=== PATIENT | male | born 1945 | race Caucasian/White ===

== ENCOUNTER 2020-06-28 02:57 | Outpatient (CLI) | payer MEDICARE, OTHER, SELFPAY ==
[2020-06-28 11:28] LABS: ALT 27 U/L (16-63); AST 25 U/L (15-37); Albumin 3.6 g/dL (3.4-5.0); Alkaline Phosphatase 52 U/L (46-116); Bilirubin, Direct 0.11 mg/dL (0.00-0.20); Bilirubin, Total 0.5 mg/dL (0.2-1.0); Total Protein 6.8 g/dL (6.4-8.2)
== END 2020-06-28 03:17 ==
PROVIDERS: Visit Provider Radiology Radiation Oncology
DX: C61 Malignant neoplasm of prostate (principal)
CPT/HCPCS: 36415; 80076

== ENCOUNTER 2022-11-18 06:53 | Day surgery (SDC) | payer MEDICARE, SELFPAY ==
[2022-11-18 07:47] VITALS: BP 146/80; PULSE 63; RESP 18; TEMP 36.7; O2SAT 97
--- NOTE | 2022-11-18 07:57 | ANES.PREOP_ITS ---
General Info Date of Service Date Performed: 11/18/22 Height: 6 ft Weight: 87.1 kg Body Mass Index (BMI): 26.0 Surgical Procedure: Operation Date: 11/18/22 09:40 Proposed Procedure Side Surgeon p Cataract Extraction with IOL Implant Left Hitesh Mendiola MD Meds Allergies and Home Medications Allergies Allergy/AdvReac Type Severity Reaction Status Date / Time No Known Allergies Allergy Unverified 11/18/22 07:38 Home Medication Medication Instructions Recorded cholecalciferol (vitamin D3) 50 50 mcg PO DAILY 11/14/22 mcg (2,000 unit) capsule (Vitamin D3) elderberry fruit 200 mg capsule 200 mg PO DAILY 11/14/22 lorazepam 0.5 mg tablet 0.5 mg PO DAILY PRN 11/14/22 multivitamin 1 tab PO DAILY 11/14/22 omeprazole 40 mg capsule,delayed 40 mg PO BID 11/14/22 release ropinirole 0.5 mg tablet 0.5 mg PO DAILY 11/14/22 aspirin 81 mg chewable tablet 1 tab PO DAILY 11/18/22 Current Visit Medications: Current Medications Generic Name Dose Route Start Last Admin Trade Name Freq PRN Reason Stop Dose Admin Acetaminophen 1,000 mg 11/18/22 06:22 Acetaminophen 500 Mg Tab PO Q4H PRN PRN Miscellaneous Medication 0 ml 11/18/22 06:22 Prednisolone 1%, Moxifloxacin 0.5%, Nepafenac 0.1% 5ml Btl OS DIRECTED [facility] Miscellaneous Medication 0 ml 11/18/22 06:22 Tropicam./Phenyleph. (1/2.5%) 5 Ml Btl OS DIRECTED [facility] Tetracaine HCl 0 ml 11/18/22 06:22 Tetracaine 0.5% 4 Ml Btl OS DIRECTED [facility] PFSH Active Problems Active Problems: Problem Status Onset Code Nuclear age-related cataract, left eye H25.12 Medical History Medical History Adenomatous polyp of colon Allergic rhinitis Squires esophagus Cataract Depressive disorder Diverticular disease of colon GERD (gastroesophageal reflux disease) Hx of urinary stone Ingrown toenail Insomnia Malignant tumor of prostate Primary cutaneous T-cell lymphoma Raised prostate specific antigen Surgical History Surgical History Hx of colonoscopy Hx of endoscopy Hx of nasal septoplasty Hx of tonsillectomy Tobacco Smoking/Tobacco Use Status: Never Alcohol Alcohol Intake: never Substance Use Substance use: Never Substance use type: does not use Vital Signs and Lab Results Vital Signs Most Recent Vital Signs in EMR: Most Recent Vital Signs Temp Pulse Resp BP Pulse Ox 36.7 C 63 18 146/80 H 97 11/18/22 07:47 11/18/22 07:47 11/18/22 07:47 11/18/22 07:47 11/18/22 07:47 Lab Results Blood Type / Crossmatch: No Data to Display Complete Blood Count: No Data to Display Complete Metabolic Panel: No Data to Display Liver Function Panel: No Data to Display Coagulation Panel: No Data to Display Cardiac Panel: No Data to Display Arterial Blood Gas: No Data to Display Venous Blood Gas: No Data to Display Pancreas Panel: No Data to Display Thyroid Panel: No Data to Display Infectious Disease: No Data to Display Blood Cultures: No Data to Display Toxicology Panel: No Data to Display Anesthesia Assessment and Plan Anesthesia History Personal History: No History of Anesthesia Complications Family History: No Family History of Anesthesia Complications Exercise Tolerance Exercise Tolerance: Metabolic Equivalents>4 Pertinent Negatives Pertinent Negatives: No Symptoms of GERD, No Major Cardiovascular Symptoms or Complaints, No Major Pulmonary Symptoms or Complaints and No History of CVA/TIA Cardiac & Pulmonary Exam Cardiac Exam: Normal S1/S2 Heart Sounds Pulmonary Exam: Clear Bilateral Breath Sounds Implantable Cardiac Device Does patient have a Pacemaker or an ICD?: No Airway Exam Known Difficult Airway: No Mallampati Class: 2 Mouth Opening: Normal (> 3cm) Thyromental Distance: Greater than 3 cm Neck Range of Motion: Full ROM Neck Circumference: Normal Teeth Condition: Normal Dentition ASA Classification ASA Score: ASA 2 Emergency Case?: No NPO Status NPO Status: NPO Clears >2 hours, Solids >8 hours Anesthesia Plan Resuscitation Status: Full Code Anesthesia Technique: MAC Anesthesia Airway Planned: Natural Airway Monitors Used: Standard Monitors
[2022-11-18 08:00] VITALS: BMI 26.0
[2022-11-18] MEDS: Tropicam./Phenyleph. (1/2.5%) 5 ML BTL OS ×3 (08:14→08:24)
[2022-11-18] MEDS: Tetracaine 0.5% 4 ML BTL OS (09:16)
[2022-11-18] MEDS: Balanced Salt Soln.-PLUS 500 ML BAG (09:23)
[2022-11-18] MEDS: Lidocaine 1% Pres-Free 5 ML VIAL (09:24)
[2022-11-18] MEDS: Duovisc Viscoelastic System EACH 1 EACH (09:24)
[2022-11-18] MEDS: Phenylephrine/Lidocaine (15/10) MG/ML 1 ML VIAL (09:25)
[2022-11-18] MEDS: Povidone-Iodine Ophth 30 ML BTL (09:26)
[2022-11-18 09:42] VITALS: BP 160/99; PULSE 62; RESP 16; TEMP 36.4; O2SAT 98
--- NOTE | 2022-11-18 09:44 | W.PM.DSUDISC ---
Date of service: 11/18/22 Time of Service: 09:44 Discharge Plan Disposition Patient Disposition: Home Discharge Details Attending Provider: Hitesh Mendiola Primary Care Provider: Rebel Gold [place] [facility] and New Rx's Prescriptions: No Action multivitamin Tablet 1 tab PO DAILY omeprazole 40 mg Capsule,Delayed Release(Dr/Ec) 40 mg PO BID lorazepam 0.5 mg Tablet 0.5 mg PO DAILY PRN ropinirole 0.5 mg Tablet 0.5 mg PO DAILY Elderberry 200 mg Capsule 200 mg PO DAILY cholecalciferol (vitamin D3) [Vitamin D3] 50 mcg (2,000 unit) Capsule 50 mcg PO DAILY aspirin 81 mg Tablet,Chewable 1 tab PO DAILY Discharge Instructions Stand Alone Forms: Post-op Topical Cataract, Efe Mujica (DSU) Discharge Orders Discharge Orders: Discharge Order (Routine); Ordered 11/18/22 Ordered By: Hitesh Mendiola DS: Diagnosis Discharge Diagnosis (1) Nuclear age-related cataract, left eye: Status: Resolved
--- NOTE | 2022-11-18 09:45 | W.PM.OP ---
Date of service: 11/18/22 Time of Service: 09:45 Operative Note Operative Note DATE OF PROCEDURE: 11/18/22 PRE-OP DIAGNOSIS: Nuclear cataract, left eye POST-OP DIAGNOSIS: same PROCEDURE: Cataract extraction using phacoemulsification with intraocular lens implant, left eye SURGEON: Hitesh Mendiola ANESTHESIA TYPE: Local By Surgeon and MAC Refer to Anesthesia Record PATHOLOGY: none sent COMPLICATIONS: None Patient was transported to: same day Patient's condition: stable Implants: Renny and Renny Tecnis Eyhance [id number] Indications: Progressive decreased vision due to cataract, left eye Procedure Description: CATARACT SURGERY OPERATIVE REPORT PREOPERATIVE DIAGNOSIS: 1. Nuclear cataract, left eye POSTOPERATIVE DIAGNOSIS: Same OPERATION: 1. Cataract extraction using phacoemulsification with posterior chamber intraocular lens implant, left eye. IOL: IOL Answering Service Telephone Operator/Model: Renny & Renny Tecnis Eyhance DIB00 IOL Power: + 20.0 diopters IOL Serial Number: [id number] Optic Diameter: 6.0 mm Haptic/Overall Diameter: 13.0 mm PHACO INFO: CristopherWHOOPon Vision System with OZil and Active Fluidics Cumulative Dispersed Energy (CDE): 17.03 seconds SURGEON: Hitesh Mendiola MD, KAEL ANESTHESIA: Monitored [facility] (MAC), with local sub-tenon's anesthetic infiltration COMPLICATIONS: None SPECIMENS: None INDICATIONS FOR PROCEDURE: The patient is a 77-year-old gentleman with history of diminished visual acuity in his left eye secondary to the development of significant nuclear cataract. He is significantly symptomatic that he desires cataract surgery and attempt to improve and maximize his vision. The option of cataract surgery was offered to the patient and he wished to proceed. PROCEDURE: The correct surgical eye was identified and marked as the left eye and the pupil was dilated in the preoperative area using mydriatics and cycloplegics. The dilated pupil size was 7.0 mm. The patient elected to proceed without oral sedation. The patient was brought to the operating room where cardiopulmonary monitoring was instituted and surgical time-out was performed, confirming the correct operative eye and IOL power. Topical anesthesia was administered and ophthalmic povidone-iodine 5% was instilled into the conjunctival fornices. Lidocaine gel was applied to the cornea and the dian-ocular area was prepped with Betadine 10% solution and draped in the usual sterile fashion for intraocular surgery, including an aperture drape. A Tegaderm transparent film dressing was cut in half and used to cover the lashes and lid margins. Care was taken to sequester the lashes and lid margins under the Tegaderm dressing. A lid speculum was placed between the lids of the operative eye and the Cristopher LuxOR Revalia operating microscope was maneuvered into position. Pamella scissors were then used to make a conjunctival buttonhole approximately 6mm posterior to the limbus in the inferonasal quadrant. Blunt dissection was carried out to expose bare sclera, and a blunt-tipped sub-tenon?s anesthesia cannula was introduced and passed posteriorly along the globe where non-preserved plain lidocaine was injected into posterior sub-Tenon?s space. A sideport knife was used to make a paracentesis port superiorly/superiortemporally. Intraocular phenylephrine/lidocaine was injected int the anterior chamber.. The anterior chamber was filled with viscoelastic. A keratome knife was used to construct a 2-plane near-clear corneal tunnel extending 2.0mm into clear cornea temporally. A flap was raised on the anterior capsule and capsulorhexis forceps were used to complete a continuous curvilinear capsulorhexis of 5.0 mm. Balanced salt solution was then used to perform cortical cleaving hydrodissection and nuclear hydrodelineation until the lens could be freely rotated within the capsular bag. The lens nucleus was then disassembled and removed within the capsular bag and iris plane using phacoemulsification. Residual cortical material was removed using the 45-degree angled silicone I/A tip with 0.3mm port. The posterior capsule was carefully polished to remove as much residual lens epithelial cells as safely possible. The capsular bag was then inflated and the anterior chamber deepened with viscoelastic. The lens implant described above was inserted into the capsular bag using the Renny and Renny Simplicity pre-loaded injector. . A Kuglen hook was used to dial the IOL into position. Residual viscoelastic was then removed first from posterior to the IOL, then from the anterior chamber using the I/A handpiece. The lens implant was noted to center nicely within the capsular bag. The incisions were stromally hydrated, and the anterior chamber was reformed using BSS. Then 0.5cc of moxifloxacin 1.0mg/ml were injected into the capsular bag and anterior chamber. The incisions were checked with a Weck spear and found to be secure. Several drops of ophthalmic povidone-iodine 5% were then applied to the eye followed by two drops of Imprimis combination prednisolone/moxifloxacin/nepafenac solution. The drapes were removed and a clear plastic protective eye shield was placed over the eye. The patient was then returned to Same Day Surgery in stable condition.
--- NOTE | 2022-11-18 10:05 | W.ANESPOSTOP ---
Postoperative Evaluation Date, Time and Location Date Performed: 11/18/22 Time Performed: 09:42 Patient Location: Day Surgery Unit Vital Signs Most Recent Imported Vital Signs: Most Recent Vital Signs Temp Pulse Resp BP Pulse Ox 36.4 C L 62 16 160/99 H 98 11/18/22 09:42 11/18/22 09:42 11/18/22 09:42 11/18/22 09:42 11/18/22 09:42 Pain Score Most Recent Pain Score: Most Recent Pain Score Pain Level 0 11/18/22 09:42 Assessment Mental Status: Awake (Alert & Oriented to Patient Baseline) Airway and Respiratory Function: Patent airway with normal (patient baseline) respiratory exam Cardiovascular Function: Hemodynamically Stable Hydration Status: Adequately Hydrated Nausea & Vomiting: No Nausea or Vomiting Pain: Pt. Denies Any Pain Peripheral Nerve Block: Other (Local by Dr. Mendiola)
== END 2022-11-18 10:15 | disposition home or self-care (01) ==
LOC: SUR 06:53
PROVIDERS: PCP Neuromusculoskeletal Medicine & OMM; Visit Provider Ophthalmology
PROC: (CPT 66984; principal; 2022-11-18 09:30)
DX: H25.12 Age-related nuclear cataract, left eye (principal); K21.9 Gastro-esophageal reflux disease without esophagitis
CPT/HCPCS: 66984; V2632

== ENCOUNTER 2022-11-25 08:34 | Day surgery (SDC) | payer MEDICARE, SELFPAY ==
--- NOTE | 2022-11-25 06:48 | ANES.PREOP_ITS ---
General Info Date of Service Date Performed: 11/25/22 Height: 6 ft Weight: 87.1 kg Body Mass Index (BMI): 26.0 Surgical Procedure: Operation Date: 11/25/22 11:40 Proposed Procedure Side Surgeon p Cataract Extraction with IOL Implant Right Hitesh Mendiola MD Meds Allergies and Home Medications Allergies Allergy/AdvReac Type Severity Reaction Status Date / Time No Known Allergies Allergy Unverified 11/25/22 09:05 Home Medication Medication Instructions Recorded cholecalciferol (vitamin D3) 50 50 mcg PO DAILY 11/14/22 mcg (2,000 unit) capsule (Vitamin D3) elderberry fruit 200 mg capsule 200 mg PO DAILY 11/14/22 lorazepam 0.5 mg tablet 0.5 mg PO DAILY PRN 11/14/22 multivitamin 1 tab PO DAILY 11/14/22 omeprazole 40 mg capsule,delayed 40 mg PO BID 11/14/22 release ropinirole 0.5 mg tablet 0.5 mg PO DAILY 11/14/22 aspirin 81 mg chewable tablet 1 tab PO DAILY 11/18/22 Current Visit Medications: Current Medications Generic Name Dose Route Start Last Admin Trade Name Freq PRN Reason Stop Dose Admin Acetaminophen 1,000 mg 11/25/22 06:00 Acetaminophen 500 Mg Tab PO Q4H PRN PRN Miscellaneous Medication 0 ml 11/25/22 06:00 Tropicam./Phenyleph. (1/2.5%) 5 Ml Btl OD DIRECTED [facility] Miscellaneous Medication 0 ml 11/25/22 06:00 Prednisolone 1%, Moxifloxacin 0.5%, Nepafenac 0.1% 5ml Btl OD DIRECTED [facility] Tetracaine HCl 0 ml 11/25/22 06:00 Tetracaine 0.5% 4 Ml Btl OD DIRECTED [facility] PFSH Active Problems Active Problems: Problem Status Onset Code Nuclear age-related cataract, right eye H25.11 Nuclear age-related cataract, left eye H25.12 Medical History Medical History Adenomatous polyp of colon Allergic rhinitis Squires esophagus Cataract Depressive disorder Diverticular disease of colon GERD (gastroesophageal reflux disease) Hx of urinary stone Ingrown toenail Insomnia Malignant tumor of prostate Primary cutaneous T-cell lymphoma Raised prostate specific antigen Surgical History Surgical History (Updated 11/25/22 @ 09:05 by Angelia Arredondo Hx of cataract removal with insertion of prosthetic lens Hx of colonoscopy Hx of endoscopy Hx of nasal septoplasty Hx of tonsillectomy Tobacco Smoking/Tobacco Use Status: Never Alcohol Alcohol Intake: never Substance Use Substance use: Never Substance use type: does not use Vital Signs and Lab Results Vital Signs Most Recent Vital Signs in EMR: Temp Pulse Resp BP Pulse Ox 36.6 C 60 16 156/89 H 97 11/25/22 08:50 11/25/22 08:50 11/25/22 08:50 11/25/22 08:50 11/25/22 08:50 Lab Results Blood Type / Crossmatch: No Data to Display Complete Blood Count: No Data to Display Complete Metabolic Panel: No Data to Display Liver Function Panel: No Data to Display Coagulation Panel: No Data to Display Cardiac Panel: No Data to Display Arterial Blood Gas: No Data to Display Venous Blood Gas: No Data to Display Pancreas Panel: No Data to Display Thyroid Panel: No Data to Display Infectious Disease: No Data to Display Blood Cultures: No Data to Display Toxicology Panel: No Data to Display Anesthesia Assessment and Plan Anesthesia History Personal History: No History of Anesthesia Complications Family History: No Family History of Anesthesia Complications Exercise Tolerance Exercise Tolerance: Metabolic Equivalents>4 Cardiac & Pulmonary Exam Cardiac Exam: Normal S1/S2 Heart Sounds Pulmonary Exam: Clear Bilateral Breath Sounds Implantable Cardiac Device Does patient have a Pacemaker or an ICD?: No Airway Exam Known Difficult Airway: No Mallampati Class: 2 Mouth Opening: Normal (> 3cm) Thyromental Distance: Greater than 3 cm Neck Range of Motion: Full ROM Neck Circumference: Normal Teeth Condition: Normal Dentition ASA Classification ASA Score: ASA 2 Emergency Case?: No NPO Status NPO Status: NPO Clears >2 hours, Solids >8 hours Anesthesia Plan Resuscitation Status: Full Code Anesthesia Technique: MAC Anesthesia Airway Planned: Natural Airway Monitors Used: Standard Monitors Preoperative Comments:: 77 yo male for repeat cataract. no MKO. Sig PMHx: GERD (omeprazole), barretts, depressive, never smoker.
[2022-11-25 08:50] VITALS: BP 156/89; PULSE 60; RESP 16; TEMP 36.6; O2SAT 97
[2022-11-25] MEDS: Tropicam./Phenyleph. (1/2.5%) 5 ML BTL OD ×3 (09:12→09:24)
[2022-11-25 09:24] VITALS: BMI 26.0
[2022-11-25] MEDS: Povidone-Iodine Ophth 30 ML BTL (10:00)
[2022-11-25] MEDS: Tetracaine 0.5% 4 ML BTL OD (10:02)
[2022-11-25] MEDS: Balanced Salt Soln.-PLUS 500 ML BAG (10:03)
[2022-11-25] MEDS: Duovisc Viscoelastic System EACH 1 EACH (10:03)
[2022-11-25] MEDS: Lidocaine 1% Pres-Free 5 ML VIAL (10:04)
[2022-11-25] MEDS: Phenylephrine/Lidocaine (15/10) MG/ML 1 ML VIAL (10:05)
[2022-11-25 10:23] VITALS: BP 147/89; PULSE 61; RESP 16; TEMP 36.3; O2SAT 98
--- NOTE | 2022-11-25 10:23 | PDOC.DSDIS_ITS ---
Date of service: 11/25/22 Time of Service: 10:24 Discharge Plan Disposition Patient Disposition: Home Discharge Details Attending Provider: Hitesh Mendiola Primary Care Provider: Rebel Gold [place] [facility] and New Rx's Prescriptions: No Action multivitamin Tablet 1 tab PO DAILY omeprazole 40 mg Capsule,Delayed Release(Dr/Ec) 40 mg PO BID lorazepam 0.5 mg Tablet 0.5 mg PO DAILY PRN ropinirole 0.5 mg Tablet 0.5 mg PO DAILY Elderberry 200 mg Capsule 200 mg PO DAILY cholecalciferol (vitamin D3) [Vitamin D3] 50 mcg (2,000 unit) Capsule 50 mcg PO DAILY aspirin 81 mg Tablet,Chewable 1 tab PO DAILY Discharge Instructions Stand Alone Forms: Post-op Topical Cataract, Efe Mujica (DSU) Discharge Orders Discharge Orders: Discharge Order (Routine); Ordered 11/25/22 Ordered By: Hitesh Mendiola DS: Diagnosis Discharge Diagnosis (1) Nuclear age-related cataract, right eye: Status: Resolved
--- NOTE | 2022-11-25 10:24 | W.PM.OP ---
Date of service: 11/25/22 Time of Service: 10:24 Operative Note Operative Note DATE OF PROCEDURE: 11/25/22 PRE-OP DIAGNOSIS: Nuclear cataract, right eye POST-OP DIAGNOSIS: same PROCEDURE: Cataract extraction using phacoemulsification with intraocular lens implant, right eye SURGEON: Hitesh Mendiola ANESTHESIA TYPE: Local By Surgeon and MAC Refer to Anesthesia Record ESTIMATED BLOOD LOSS: 0 PATHOLOGY: none sent COMPLICATIONS: None Patient was transported to: same day Patient's condition: stable Implants: Renny & Renny Tecnis Eyhance DIB00 Indications: Progressive visual loss due to cataract, right eye Procedure Description: CATARACT SURGERY OPERATIVE REPORT PREOPERATIVE DIAGNOSIS: 1. Nuclear cataract, right eye POSTOPERATIVE DIAGNOSIS: Same OPERATION: 1. Cataract extraction using phacoemulsification with posterior chamber intraocular lens implant, right eye. IOL: IOL Fleet Manager/Dispatch/Model: Renny & Renny Tecnis Eyhance DIB00 IOL Power: + 19.5 diopters IOL Serial Number: [id number] Optic Diameter: 6.0mm Haptic/Overall Diameter: 13.0mm PHACO INFO: CristopherLivemapon Vision System with OZil and Active Fluidics Cumulative Dispersed Energy (CDE): 9.67 seconds SURGEON: Hitesh Mendiola MD, KAEL ANESTHESIA: Monitored An[facility] (MAC), with local sub-tenon's anesthetic infiltration COMPLICATIONS: None SPECIMENS: None INDICATIONS FOR PROCEDURE: The patient is a 77-year-old gentleman with history of diminished visual acuity in his right eye secondary to the development of nuclear cataract. He has already undergone cataract surgery in his left eye and is doing well postoperatively. He now presents for cataract surgery in the right eye. PROCEDURE: The correct surgical eye was identified and marked as the right eye and the pupil was dilated in the preoperative area using mydriatics and cycloplegics. The dilated pupil size was 7.0 mm. The patient elected to proceed without oral sedation. The patient was brought to the operating room where cardiopulmonary monitoring was instituted and surgical time-out was performed, confirming the correct operative eye and IOL power. Topical anesthesia was administered and ophthalmic povidone-iodine 5% was instilled into the conjunctival fornices. Lidocaine gel was applied to the cornea and the dian-ocular area was prepped with Betadine 10% solution and draped in the usual sterile fashion for intraocular surgery, including an aperture drape. A Tegaderm transparent film dressing was cut in half and used to cover the lashes and lid margins. Care was taken to sequester the lashes and lid margins under the Tegaderm dressing. A lid speculum was placed between the lids of the operative eye and the Cristopher LuxOR Revalia operating microscope was maneuvered into position. Pamella scissors were then used to make a conjunctival buttonhole approximately 6mm posterior to the limbus in the inferonasal quadrant. Blunt dissection was carried out to expose bare sclera, and a blunt-tipped sub-tenon?s anesthesia cannula was introduced and passed posteriorly along the globe where non-preserved plain lidocaine was injected into posterior sub-Tenon?s space. A sideport knife was used to make a paracentesis port inferotemporally. Intraocular phenylephrine/lidocaine was injected into the anterior chamber. The anterior chamber was filled with viscoelastic. A keratome knife was used to construct a 2-plane near-clear corneal tunnel extending 2.0mm into clear cornea superiortemporally. A flap was raised on the anterior capsule and capsulorhexis forceps were used to complete a continuous curvilinear capsulorhexis of 5.5 mm. Balanced salt solution was then used to perform cortical cleaving hydrodissection and nuclear hydrodelineation until the lens could be freely rotated within the capsular bag. The lens nucleus was then disassembled and removed within the capsular bag and iris plane using phacoemulsification. Residual cortical material was removed using the I/A handpiece. The posterior capsule was carefully polished to remove as much residual lens epithelial cells as safely possible. The capsular bag was then inflated and the anterior chamber deepened with viscoelastic. The lens implant described above was inserted into the capsular bag using the Renny and Tatum Simplicity pre-loaded injector. A Kuglen hook was used to dial the IOL into position. Residual viscoelastic was then removed first from posterior to the IOL, then from the anterior chamber using the I/A handpiece. The lens implant was noted to center nicely within the capsular bag. The incisions were stromally hydrated, and the anterior chamber was reformed using BSS. Then 0.5cc of moxifloxacin 1.0mg/ml were injected into the capsular bag and anterior chamber. The incisions were checked with a Weck spear and found to be secure. Several drops of ophthalmic povidone-iodine 5% were then applied to the eye followed by two drops of Imprimis combination prednisolone/moxifloxacin/nepafenac solution. The drapes were removed and a clear plastic protective eye shield was placed over the eye. The patient was then returned to Same Day Surgery in stable condition.
--- NOTE | 2022-11-25 10:37 | W.ANESPOSTOP ---
Postoperative Evaluation Date, Time and Location Date Performed: 11/25/22 Time Performed: 10:23 Patient Location: Day Surgery Unit Vital Signs Most Recent Imported Vital Signs: Most Recent Vital Signs Temp Pulse Resp BP Pulse Ox 36.3 C L 61 16 147/89 H 98 11/25/22 10:23 11/25/22 10:23 11/25/22 10:23 11/25/22 10:23 11/25/22 10:23 Pain Score Most Recent Pain Score: Most Recent Pain Score Pain Level 0 11/25/22 10:23 Assessment Mental Status: Awake (Alert & Oriented to Patient Baseline) Airway and Respiratory Function: Patent airway with normal (patient baseline) respiratory exam Cardiovascular Function: Hemodynamically Stable Hydration Status: Adequately Hydrated Nausea & Vomiting: No Nausea or Vomiting Pain: Pt. Denies Any Pain Peripheral Nerve Block: Patient did not receive a nerve block
== END 2022-11-25 10:42 | disposition home or self-care (01) ==
LOC: SUR 08:34
PROVIDERS: PCP Neuromusculoskeletal Medicine & OMM; Visit Provider Ophthalmology
PROC: (CPT 66984; principal; 2022-11-25 11:30)
DX: H25.11 Age-related nuclear cataract, right eye (principal); Z98.42 Cataract extraction status, left eye
CPT/HCPCS: 66984; V2632